=== PATIENT | female | born 2000 | race Hispanic/Latino ===

== ENCOUNTER 2021-01-12 11:10 | Emergency (ER) | payer OTHER ==
--- OUTSIDE RECORDS SUMMARY | 2021-01-12 11:13 | XMS REPORT | Continuity of Care Document ---
:2000 Author Organization [facility] t Address [address] [place] [address] Care Team Providers Name Role Phone Ultrasound Attending Clinician Unavailable Lab, Fam Pob I Attending Clinician Unavailable Problems This patient has no known problems. Allergies, Adverse Reactions, Alerts This patient has no known allergies or adverse reactions. Medications This patient has no known medications. Procedures This patient has no known procedures. Encounters Start End Encounter Admission Attending Care Care Encounter Source Date/Time Date/Time Type Type Clinicians Facility Department ID 2020-12-16 2020-12-16 Profile Saw Operator Ultrasound, [facility] [id number] 10:06:22 11:21:22 Visit Ang-Mfm PRODUCTION COST ESTIMATOR [id number] [facility] [id number] MATERNAL [phone] & CHILD [address] [place] [address] 2020-11-17 2020-11-17 Laboratory Lab, [facility] [id number] 13:50:28 14:06:59 Only Fam Pob I Health [id number] [place] [id number] Professio [phone] [address] Results This patient has no known results.
--- NOTE | 2021-01-12 14:04 | ER ---
Nurse's Notes [facility] Name: Vivienne Washington Age: 20 yrs Sex: Female : 2000 Arrival Date: 01/12/2021 Time: 11:13 Bed 17 Private MD: Bernie Fletcher Diagnosis: Acute laryngopharyngitis;Viral Pharyngitis Presentation: 01/12 11:25 Chief complaint: Patient states: Sore/scratchy throat and neck pain radiating to ph shoulders since yesterday, denies fever N/V. Coronavirus screen: Client denies travel out of the [place] in the last 14 days. Ebola Screen: No symptoms or risks identified at this time. Initial Sepsis Screen: Does the patient meet any 2 criteria? No. Patient's initial sepsis screen is negative. Does the patient have a suspected source of infection? No. Patient's initial sepsis screen is negative. Risk Assessment: Do you want to hurt yourself or someone else? Patient reports no desire to harm self or others. Onset of symptoms was January 12, 2021. 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 - Social history:: Smoking status: Patient denies any tobacco usage or history of. Screenin:59 Abuse screen: Denies threats or abuse. Denies injuries from another. Nutritional jl7 screening: No deficits noted. Tuberculosis screening: No symptoms or risk factors identified. Fall Risk None identified. Assessment: 11:59 General: Appears in no apparent distress. uncomfortable, Behavior is calm, cooperative, jl7 appropriate for age. Pain: Complains of pain in sore throat. Neuro: Level of Consciousness is awake, alert, obeys commands, Oriented to person, place, time, situation. Cardiovascular: Patient's skin is warm and dry. Respiratory: Airway is patent Respiratory effort is even, unlabored, Respiratory pattern is regular, symmetrical. EENT: Throat is clear. Derm: Skin is pink, warm \T\ dry. 13:00 Reassessment: Patient appears in no apparent distress at this time. Patient is alert, ld1 oriented x 3, equal unlabored respirations, skin warm/dry/pink. 14:36 Reassessment: Patient appears in no apparent distress at this time. Patient is alert, ld1 oriented x 3, equal unlabored respirations, skin warm/dry/pink. Patient denies pain at this time. 14:37 Respiratory: Breath sounds are clear. ld1 Vital Signs: 11:25 BP 110 / 59; Pulse 89; Resp 18; Temp 98.2; Pulse Ox 98% on R/A; Weight 79.38 kg; Height ph 5 ft. 3 in. (160.02 cm); 13:00 BP 115 / 65; Pulse 86; Resp 18; Pulse Ox 100% ; ld1 14:36 BP 112 / 62; Pulse 88; Resp 18; Pulse Ox 100% on R/A; ld1 11:25 Body Mass Index 31.00 (79.38 kg, 160.02 cm) ph ED Course: 11:13 Patient arrived in ED. am2 11:13 Bernie Fletcher MD is Private Physician. am2 11:15 Danny Whalen MD is Attending Physician. kdr 11:27 Triage completed. ph 11:27 Arm band placed on Patient placed in an exam room. ph 11:40 Emelia Pritchett RN is Primary Nurse. jl7 11:59 Patient has correct armband on for positive identification. Bed in low position. Call jl7 light in reach. Side rails up X 1. 11:59 Flu and/or RSV swab sent to lab. Strep swab sent to lab. jl7 12:05 Report given to Octavia Alarcon RN. jl7 14:02 Bernie Fletcher MD is Referral Physician. kdr 14:35 Octavia Alarcon, RN is Primary Nurse. ld1 14:36 No provider procedures requiring assistance completed. Patient did not have IV access ss during this emergency room visit. Administered Medications: No medications were administered Outcome: 14:04 Discharge ordered by . kdr 14:36 Discharged to home ambulatory. ss 14:36 Condition: good 14:36 Discharge instructions given to patient, Instructed on discharge instructions, follow up and referral plans. Demonstrated understanding of instructions, follow-up care, Prescriptions given X 1. 14:37 Discharged to home ambulatory. ld1 14:37 Condition: stable 14:37 Patient left the ED. Signatures: Danny Whalen MD MD [facility] Drea Chery RN RN ss Umu Barreto RN RN Emelia Pritchett RN RN 7 Krissy Cheung [facility] Octavia Alarcon RN RN ld1
--- NOTE | 2021-01-12 14:05 | EDPHYS ---
Physician Documentation [facility] Name: Vivienne Washington Age: 20 yrs Sex: Female : 2000 Arrival Date: 01/12/2021 Time: 11:13 Bed 17 Private MD: Bernie Fletcher ED Physician Danny Whalen HPI: 01/12 11:32 This 20 yrs old Female presents to ER via Ambulatory with complaints of Sore kdr Throat, Neck Pain, <24hrs Old. 11:32 The patient presents with sore throat, dysphagia. The patient describes throat pain as kdr burning, raw, On fire. Onset: The symptoms/episode began/occurred gradually, 3 day(s) ago. Severity of symptoms: At their worst the symptoms were mild, just prior to arrival, in the emergency department the symptoms are unchanged. Modifying factors: The symptoms are alleviated by nothing, the symptoms are aggravated by foods, swallowing. Associated signs and symptoms: Pertinent positives: Sore throat. The patient has not experienced similar symptoms in the past. The patient has not recently seen a physician. 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 - Social history:: Smoking status: Patient denies any tobacco usage or history of. ROS: 11:32 Constitutional: Negative for fever, chills, and weight loss, Eyes: Negative for injury, kdr pain, redness, and discharge, Neck: Negative for injury, pain, and swelling, Cardiovascular: Negative for chest pain, palpitations, and edema, Respiratory: Negative for shortness of breath, cough, wheezing, and pleuritic chest pain, Abdomen/GI: Negative for abdominal pain, nausea, vomiting, diarrhea, and constipation, Back: Negative for injury and pain, : Negative for injury, bleeding, discharge, and swelling, MS/Extremity: Negative for injury and deformity, Skin: Negative for injury, rash, and discoloration, Neuro: Negative for headache, weakness, numbness, tingling, and seizure activity. Psych: Negative for depression, anxiety, suicide ideation, homicidal ideation, and hallucinations, Allergy/Immunology: Negative for hives, rash, and allergies, Endocrine: Negative for neck swelling, polydipsia, polyuria, polyphagia, and marked weight changes, Hematologic/Lymphatic: Negative for swollen nodes, abnormal bleeding, and unusual bruising. 11:32 ENT: Positive for sore throat, Negative for drainage from ear(s), ear pain, foreign body sensation, Gum pain hearing loss, pulling at ears, Teeth pain tinnitus, nasal discharge, rhinorrhea, sinus congestion, sinus pain, dental pain, difficulty handling secretions, hoarseness, acute changes. Exam: 11:32 Constitutional: This is a well developed, well nourished patient who is awake, alert, kdr and in no acute distress. Head/Face: Normocephalic, atraumatic. Eyes: Pupils equal round and reactive to light, extra-ocular motions intact. Lids and lashes normal. Conjunctiva and sclera are non-icteric and not injected. Cornea within normal limits. Periorbital areas with no swelling, redness, or edema. Neck: Trachea midline, no thyromegaly or masses palpated, and no cervical lymphadenopathy. Supple, full range of motion without nuchal rigidity, or vertebral point tenderness. No Meningismus. Chest/axilla: Normal chest wall appearance and motion. Nontender with no deformity. No lesions are appreciated. Cardiovascular: Regular rate and rhythm with a normal S1 and S2. No gallops, murmurs, or rubs. Normal PMI, no JVD. No pulse deficits. Respiratory: Lungs have equal breath sounds bilaterally, clear to auscultation and percussion. No rales, rhonchi or wheezes noted. No increased work of breathing, no retractions or nasal flaring. Abdomen/GI: Soft, non-tender, with normal bowel sounds. No distension or tympany. No guarding or rebound. No evidence of tenderness throughout. Back: No spinal tenderness. No costovertebral tenderness. Full range of motion. Skin: Warm, dry with normal turgor. Normal color with no rashes, no lesions, and no evidence of cellulitis. MS/ Extremity: Pulses equal, no cyanosis. Neurovascular intact. Full, normal range of motion. Neuro: Awake and alert, GCS 15, oriented to person, place, time, and situation. Cranial nerves II-XII grossly intact. Motor strength 5/5 in all extremities. Sensory grossly intact. Cerebellar exam normal. Normal gait. Psych: Awake, alert, with orientation to person, place and time. Behavior, mood, and affect are within normal limits. 11:32 ENT: External ear(s): no acute changes, Posterior pharynx: Uvula: midline, non-edematous, erythema, exudate, is not appreciated, peritonsillar mass, is noted on the right, pooling of secretions. Vital Signs: 11:25 BP 110 / 59; Pulse 89; Resp 18; Temp 98.2; Pulse Ox 98% on R/A; Weight 79.38 kg; Height ph 5 ft. 3 in. (160.02 cm); 13:00 BP 115 / 65; Pulse 86; Resp 18; Pulse Ox 100% ; ld1 14:36 BP 112 / 62; Pulse 88; Resp 18; Pulse Ox 100% on R/A; ld1 11:25 Body Mass Index 31.00 (79.38 kg, 160.02 cm) ph MDM: 11:32 Data reviewed: vital signs, nurses notes, lab test result(s). Counseling: I had a kdr detailed discussion with the patient and/or guardian regarding: the historical points, exam findings, and any diagnostic results supporting the discharge/admit diagnosis, lab results, the need for outpatient follow up. 14:04 Patient medically screened. kdr 01/12 11:31 Order name: Strep; Complete Time: 12:59 kdr 01/12 11:31 Order name: Flu; Complete Time: 12:59 kdr 01/12 12:55 Order name: Throat Culture EDMS Administered Medications: No medications were administered Disposition Summary: 01/12/21 14:04 Discharge Ordered Location: Home kdr Problem: new kdr Symptoms: have improved kdr Condition: Stable kdr Diagnosis - Acute laryngopharyngitis kdr - Viral Pharyngitis kdr Followup: kdr - With: Bernie Fletcher MD - When: 2 - 3 days - Reason: If symptoms return, Further diagnostic work-up, Recheck today's complaints, Continuance of care, Re-evaluation by your physician Discharge Instructions: - Discharge Summary Sheet kdr - Pharyngitis, Yjpw-[id number] kdr - Sore Throat, [id number]-[id number] kdr - Viral Illness, Adult kdr Forms: - Medication Reconciliation Form kdr - Thank You Letter kdr Prescriptions: - Tramadol 50 mg Oral Tablet - take 1 tablet by ORAL route every 8 hours as needed; 12 tablet; Refills: 0, kdr Product Selection Permitted Signatures: Dispatcher [employer] Danny Ruiz MD MD kdr Hall, Patricia, RN RN ph
[2021-01-12 14:42] VITALS: TEMP 98.2
[2021-01-12 14:43] VITALS: O2SAT 100
[2021-01-12 14:45] VITALS: BP 112/62
== END 2021-01-12 14:37 | disposition home or self-care (01) ==
LOC: ER 11:10
DX: O98.512 Other viral diseases complicating pregnancy, second trimester (principal); J06.0 Acute laryngopharyngitis; Z3A.24 24 weeks gestation of pregnancy
CPT/HCPCS: 87070; 87081; 87804

== ENCOUNTER 2021-01-18 03:11 | Emergency (ER) | payer OTHER ==
--- NOTE | 2021-01-18 03:45 | EDPHYS ---
Physician Documentation [facility] Name: Vivienne Washington Age: 20 yrs Sex: Female : 2000 Arrival Date: 01/18/2021 Time: 03:14 Bed 19 Private MD: ED Physician Fanny Dunne HPI: 01/18 03:41 This 20 yrs old Female presents to ER via Ambulatory with complaints of Ear ma2 Pain. 03:42 The patient presents with pain. The complaints affect the left ear. Associated signs ma2 and symptoms: Pertinent negatives: lightheadedness, rhinorrhea, shortness of breath, tinnitus, vertigo. Severity of symptoms: At their worst the symptoms were mild in the emergency department the symptoms are unchanged. The patient has experienced similar episodes in the past. 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 - Social history:: Smoking status: Patient denies any tobacco usage or history of. Patient/guardian denies using alcohol, street drugs. - Family history:: not pertinent. - Hospitalizations: : No recent hospitalization is reported. ROS: 03:42 Constitutional: Negative for fever, chills, and weight loss. ma2 03:42 All other systems are negative. Exam: 03:42 Constitutional: This is a well developed, well nourished patient who is awake, alert, ma2 and in no acute distress. Head/Face: Normocephalic, atraumatic. Eyes: Pupils equal round and reactive to light, extra-ocular motions intact. Lids and lashes normal. Conjunctiva and sclera are non-icteric and not injected. Cornea within normal limits. Periorbital areas with no swelling, redness, or edema. ENT: left tm is red with mild edema of ear canal, right ear is wnl, otherwise Nares patent. No nasal discharge, no septal abnormalities noted. Oropharynx with no redness, swelling, or masses, exudates, or evidence of obstruction, uvula midline. Mucous membranes moist. Neck: Trachea midline, no thyromegaly or masses palpated, and no cervical lymphadenopathy. Supple, full range of motion without nuchal rigidity, or vertebral point tenderness. No Meningismus. Chest/axilla: Normal chest wall appearance and motion. Nontender with no deformity. No lesions are appreciated. Cardiovascular: Regular rate and rhythm with a normal S1 and S2. No gallops, murmurs, or rubs. Normal PMI, no JVD. No pulse deficits. Respiratory: Lungs have equal breath sounds bilaterally, clear to auscultation and percussion. No rales, rhonchi or wheezes noted. No increased work of breathing, no retractions or nasal flaring. Abdomen/GI: Soft, non-tender, with normal bowel sounds. No distension or tympany. No guarding or rebound. No evidence of tenderness throughout. Vital Signs: 03:27 BP 123 / 70; Pulse 76; Resp 16; Temp 97.1(TE); Pulse Ox 99% on R/A; Weight 77.11 kg jb4 (R); Height 5 ft. 3 in. (160.02 cm); Pain 9/10; 03:27 Body Mass Index 30.11 (77.11 kg, 160.02 cm) jb4 MDM: 03:29 Patient medically screened. ma2 03:42 Differential diagnosis: otitis media, otitis externa, foreign body, acute otalgia. ma2 Differential diagnosis: cerumen impaction. Data reviewed: vital signs, nurses notes. Counseling: I had a detailed discussion with the patient and/or guardian regarding: the historical points, exam findings, and any diagnostic results supporting the discharge/admit diagnosis, the presence of at least one elevated blood pressure reading (>120/80) during this emergency department visit. Response to treatment: the patient's symptoms have markedly improved after treatment. Administered Medications: 03:51 Not Given ([facility] Amoxicillin 875 mg PO once jb4 04:03 Not Given (Other Intervention Used): CIPRODEX (ciprofloxacin-dexamethasone) Drops 4 jb4 drops Otic in left ear once 04:08 Drug: Tylenol 500 mg Route: PO; jb4 04:09 Follow up: Response: Medication administered at discharge. jb4 04:08 Drug: Augmentin (Amoxicillin-Clavulanate) 875 mg Route: PO; jb4 04:08 Follow up: Response: Medication administered at discharge. jb4 04:08 Drug: Hohaufic-Kooqtzltl-XH Drops 4 drops Route: Otic; Site: left ear; jb4 04:09 Follow up: Response: Medication administered at discharge. jb4 Disposition Summary: 01/18/21 03:44 Discharge Ordered Location: Home ma2 Condition: Stable ma2 Diagnosis - Otitis media in diseases classified elsewhere, left ear ma2 Followup: ma2 - With: Private Physician - When: Tomorrow - Reason: If symptoms return, Continuance of care Discharge Instructions: - Discharge Summary Sheet ma2 - Ear Drops, Adult ma2 - Otitis Media, Adult, Qlou-ol-Znhc ma2 Forms: - Medication Reconciliation Form ma2 - Thank You Letter ma2 - Antibiotic Education ma2 - Prescription Opioid Use ma2 Prescriptions: - Amoxicillin 875 mg Oral Tablet - take 1 tablet by ORAL route every 12 hours for 10 days; 20 tablet; Refills: 0, ma2 Product Selection Permitted Signatures: Richard Glass RN RN jb4 Fanny Dunne MD MD ma2
--- NOTE | 2021-01-18 03:45 | ER ---
Nurse's Notes [facility] Name: Vivienne Washington Age: 20 yrs Sex: Female : 2000 Arrival Date: 01/18/2021 Time: 03:14 Bed 19 Private MD: Diagnosis: Otitis media in diseases classified elsewhere, left ear Presentation: 01/18 03:27 Chief complaint: Patient states: I am having ear pain that is 9/10 in my left ear that jb4 started tonight. About 3 days ago I had burning in my throat and was tested for flu and strep. Both were negative. I had a slight cough and thought I was getting better then woke up tonight with the ear pain. Coronavirus screen: Client denies travel out of the [place] in the last 14 days. At this time, the client does not indicate any symptoms associated with coronavirus-19. Ebola Screen: No symptoms or risks identified at this time. Initial Sepsis Screen: Does the patient meet any 2 criteria? No. Patient's initial sepsis screen is negative. Does the patient have a suspected source of infection? No. Patient's initial sepsis screen is negative. Risk Assessment: Do you want to hurt yourself or someone else? Patient reports no desire to harm self or others. Onset of symptoms was January 18, 2021. Transition of care: patient was not received from another setting of care. 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 - Social history:: Smoking status: Patient denies any tobacco usage or history of. Patient/guardian denies using alcohol, street drugs. - Family history:: not pertinent. - Hospitalizations: : No recent hospitalization is reported. Screenin:30 Abuse screen: Denies threats or abuse. Nutritional screening: No deficits noted. jb4 Tuberculosis screening: No symptoms or risk factors identified. Fall Risk None identified. Assessment: 03:30 General: Appears in no apparent distress. comfortable, Behavior is calm, cooperative, jb4 appropriate for age. Pain: Complains of pain in left ear Pain does not radiate. Pain currently is 9 out of 10 on a pain scale. Quality of pain is described as aching. Neuro: Level of Consciousness is awake, alert, obeys commands, Oriented to person, place, time, situation. Cardiovascular: Patient's skin is warm and dry. Respiratory: Airway is patent Respiratory effort is even, unlabored, Respiratory pattern is regular, symmetrical. GI: No signs and/or symptoms were reported involving the gastrointestinal system. : No signs and/or symptoms were reported regarding the genitourinary system. EENT: No signs and/or symptoms were reported regarding the EENT system. Derm: Skin is intact, Skin is pink, warm \T\ dry. Musculoskeletal: Circulation, motion, and sensation intact. Range of motion: intact in all extremities. Vital Signs: 03:27 BP 123 / 70; Pulse 76; Resp 16; Temp 97.1(TE); Pulse Ox 99% on R/A; Weight 77.11 kg jb4 (R); Height 5 ft. 3 in. (160.02 cm); Pain 9/10; 03:27 Body Mass Index 30.11 (77.11 kg, 160.02 cm) jb4 ED Course: 03:14 Patient arrived in ED. bp1 03:21 Fanny Dunne MD is Attending Physician. ma2 03:27 Richard Glass, RN is Primary Nurse. jb4 03:29 Triage completed. jb4 03:29 Arm band placed on right wrist. jb4 03:30 Patient has correct armband on for positive identification. Placed in gown. Bed in low jb4 position. Call light in reach. Side rails up X 1. 03:30 No provider procedures requiring assistance completed. Patient did not have IV access jb4 during this emergency room visit. Administered Medications: 03:51 Not Given (Medication unavailable at [facility]): Amoxicillin 875 mg PO once jb4 04:03 Not Given (Other Intervention Used): CIPRODEX (ciprofloxacin-dexamethasone) Drops 4 jb4 drops Otic in left ear once 04:08 Drug: Tylenol 500 mg Route: PO; jb4 04:09 Follow up: Response: Medication administered at discharge. jb4 04:08 Drug: Augmentin (Amoxicillin-Clavulanate) 875 mg Route: PO; jb4 04:08 Follow up: Response: Medication administered at discharge. jb4 04:08 Drug: Cqrlnjjk-Nwarmdere-IF Drops 4 drops Route: Otic; Site: left ear; jb4 04:09 Follow up: Response: Medication administered at discharge. jb4 Outcome: 03:44 Discharge ordered by . vielka 04:12 Discharged to home ambulatory. jb4 04:12 Condition: stable 04:12 Discharge instructions given to patient, Instructed on discharge instructions, follow up and referral plans. medication usage, Demonstrated understanding of instructions, follow-up care, medications, Prescriptions given X 1. 04:12 Patient left the ED. jb4 Signatures: Richard Glass RN RN jb4 Fanny Dunne MD MD ma2 Serena Marinelli [facility]
[2021-01-18] MEDS ORDERED: ACETAMINOPHEN 500 MG TAB ONE (04:15)
[2021-01-18] MEDS ORDERED: NEOMY/POLY/HC 1% OTIC DROPS ONE (04:19)
[2021-01-18] MEDS ORDERED: AMOX/K CLAV 875 MG TAB ONE (04:19)
[2021-01-18 04:24] VITALS: BP 123/70; TEMP 97.1; O2SAT 99
== END 2021-01-18 04:12 | disposition home or self-care (01) ==
LOC: ER 03:11
DX: H66.92 Otitis media, unspecified, left ear (principal); Z3A.24 24 weeks gestation of pregnancy
CPT/HCPCS: 99283